=== PATIENT | male | born 1970 | race Two or more races ===

== ENCOUNTER → 2021-12-01 | Emergency (ER) | payer OTHER ==
[~2021-12-01] VITALS: Ht 152.4 cm; Wt 95.3 kg
[~2021-12-01] MED LIST: ALLOPURINOL100 MG; AMLODIPINE BESY10 MG; ATORVASTATIN CA20 MG; CELLCEPT500 MG; DOXAZOSIN MESYLA4 MG; FUROSEMIDE40 MG; HUMALOG KW200 UNIT/1; JARDIANCE10 MG; LEVOTHYROXINE100 MCG; METOPROLOL SUC100 MG; MILLIPRED5 MG; PHOSLO667 M1; SIROLIMUS1 MG PO; TOUJEO MAX300 UNIT/1
== END | disposition home or self-care (01) ==
LOC: ER 13:23
DX: U07.1 COVID-19 (principal)